=== PATIENT | male | born 1970 | race Caucasian/White ===

== ENCOUNTER 2021-09-21 02:57 | Inpatient (IN) | payer OTHER, MEDICAID ==
[~2021-09-21] VITALS: Ht 180.3 cm; Wt 126.6 kg
[2021-09-21 02:57] VITALS: BP_SYST 146
--- NOTE | 2021-09-21 02:57 | NUR ---
Placed in room 1 . Placed on site monitor, blood pressure machine and pulse oximeter. To gown for exam. Side rails up. Report given to Clark CARLOS.
--- NOTE | 2021-09-21 02:58 | NUR ---
ER Dr.Dela Ybarra at bedside examining patient.
--- NOTE | 2021-09-21 02:59 | NUR ---
Code stroke activated.
--- NOTE | 2021-09-21 03:08 | NUR ---
Pt taken to CT via acls protocol.
[2021-09-21] MEDS ORDERED: NITROGLYCERIN 0.4 MG TAB.SUBL SL ONE (03:15)
[2021-09-21] MEDS ORDERED: IOHEXOL 350 mgI/mL, 150 ML INFUS..BTL IV ONE (03:16)
[2021-09-21 03:25] LABS: BASOPHILS # (AUTO) 0.1 K/uL (0.0-0.2); BASOPHILS % (AUTO) 1.3 % (0.0-2.0); EOSINOPHILS # (AUTO) 0.3 K/uL (0.0-0.4); EOSINOPHILS % (AUTO) 3.2 % (0.0-4.0); HEMOGLOBIN 15.2 g/dL (14.0-18.0); LYMPHOCYTES # (AUTO) 4.2 K/uL (1.0-5.5); MEAN CORPUSCULAR HEMOGLOBIN 33 pg (27-31); MEAN CORPUSCULAR HGB CONC 35 % (32-36); MEAN CORPUSCULAR VOLUME 95 fL (79.0-98.0); MONOCYTES # (AUTO) 0.5 K/uL (0.0-1.0); MONOCYTES % (AUTO) 6.9 % (1.7-9.3); NEUTROPHILS # (AUTO) 2.8 K/uL (1.8-7.7); NEUTROPHILS % (AUTO) 35.6 % (40.0-70.0); PLATELET COUNT (AUTO) 257 K/uL (130-430); RED BLOOD CELL COUNT(AUTO) 4.62 MIL/uL (4.2-6.2); RED CELL DISTRIBUTION WIDTH 13.7 % (9.0-15.0); WHITE BLOOD COUNT (AUTO) 7.9 K/uL (4.8-10.8)
--- NOTE | 2021-09-21 03:29 | NUR ---
Pt back to ER bed [address]
[2021-09-21] MEDS: IPRATROPIUM/ALBUTEROL SULFATE 3 ML AMPUL.NEB (DUONEB) INH SCH (03:30)
--- NOTE | 2021-09-21 03:30 | NUR ---
PATIENT BACK FROM CT SCAN AND PLACED INTO BED 1 AND ON THE MONITOR.
--- NOTE | 2021-09-21 03:45 | NUR ---
DR. CORINNE MCDERMOTT WITH NEUROLOGY ON THE TELEMED VIDEO ASSESSING AND SPEAKING TO PATIENT.
[2021-09-21 03:47] LABS: ANION GAP 10 (5-15); CALCIUM 8.6 mg/dL (8.4-11.0); CHLORIDE 100 mmol/L (98-107); CREATININE 0.96 mg/dL (0.55-1.30); GLUCOSE 120 mg/dL (70-99); POTASSIUM 4.7 mmol/L (3.5-5.1); SODIUM SERUM 133 mmol/L (136-145); UREA NITROGEN, BLOOD 11 mg/dL (8-21)
[2021-09-21 03:59] LABS: ALANINE AMINOTRANSFERASE 38 U/L (12-78); ALBUMIN 3.6 g/dL (3.4-4.8); ALCOHOL, BLOOD 246 mg/dL (<10); ASPARTATE AMINOTRANSFERASE 36 U/L (10-37); TOTAL BILIRUBIN 0.5 mg/dL (0.0-1.0)
[2021-09-21 04:04] LABS: GFR AFRICAN AMERICAN 106 mL/min (>90)
[2021-09-21] MEDS ORDERED: MORPHINE 4 MG INJ. 4 MG/ML VIAL IVP ONE (04:15)
[2021-09-21] MEDS ORDERED: ONDANSETRON HCL 4 MG/2 ML VIAL IVP ONE (04:15)
[2021-09-21] MEDS ORDERED: MORPHINE 4 MG INJ. 4 MG/ML VIAL ONE ×2 (04:26→08:32)
[2021-09-21 04:40] LABS: BILIRUBIN,URINE NEGATIVE (NEGATIVE); BLOOD, URINE NEGATIVE (NEGATIVE); CLARITY/URINE CLEAR (CLEAR); COLOR,URINE YELLOW (YELLOW); GLUCOSE,URINE NEGATIVE (NEGATIVE); KETONES,URINE NEGATIVE (NEGATIVE); LEUKOCYTE ESTERASE ,URINE NEGATIVE (NEGATIVE); NITRITE, URINE NEGATIVE (NEGATIVE); PROTEIN URINE TRACE (NEGATIVE); UROBILINOGEN,URINE 0.2 (0.2-1.0)
[2021-09-21 04:48] LABS: BARBITURATE, URINE NEGATIVE (NEG <=200); BENZODIAZEPINE, URINE NEGATIVE (NEG <=150); CANNABINOID, URINE POSITIVE (NEG <=50); COCAINE, URINE NEGATIVE (NEG <=150); METHAMPHETAMINES SCREEN,URINE NEGATIVE (NEG <=500); OPIATE, URINE NEGATIVE (NEG <=100); PHENCYCLIDINE SCREEN,URINE NEGATIVE (NEG <=25); UR TRICYCLIC ANTIDEPRESSANTS NEGATIVE (NEG <=300); URINE AMPHETAMINE NEGATIVE (NEG <=500); URINE METHADONE NEGATIVE (NEG <=200); URINE OXYCODONE SCREEN NEGATIVE (NEG <=100); URINE PROPOXYPHENE SCREEN NEGATIVE (NEG <=300)
[2021-09-21] MEDS ORDERED: FOLIC ACID 1 MG, THIAMINE HCL 100 MG, MAGNESIUM SULFATE 1 GM, MVI 10 ML in NACL 0.9% 1,... IV SCH (05:00)
--- NOTE | 2021-09-21 05:05 | NUR ---
Admit bed requested Patient will be admitted to care of . Admitted to TELE unit. Diagnosis ACUTE CVA,ETOH Inpatient (Yes or No) YES Observation (Yes or No) NO Orientation concerns or request close to nursing station (Yes or No) NO Covid Status PENDING On vent or bipap NO Isolation requirements NO Needs a sitter NO From Home (Yes or if No enter name of facility) YES Requires Dialysis (Yes or No) NO Med Rec Completed (Yes of No) PENDING
[2021-09-21 05:20] LABS: PROTHROMBIN TIME 9.7 SECS (9.5-12.5)
--- NOTE | 2021-09-21 07:14 | NUR ---
REPORT GIVEN TO BREANNA WARE
--- NOTE | 2021-09-21 07:23 | NUR ---
Assumed care of pt and pt is in bed resting with no s/s of distress. A&Ox4. SKin intact. VSS. 18g IV intact on right AC no infiltration noted. Bed in lowest position. No chest pain and no sob. Denies n/v. No stroke symptoms present.
[2021-09-21] MEDS ORDERED: THIAMINE HCL 100 MG, MAGNESIUM SULFATE 1 GM in NS 100 ML IV SCH (08:15)
[2021-09-21] MEDS ORDERED: FOLIC ACID 1 MG, MVI 10 ML in NACL 0.9% 1,000 ML IV SCH (08:15)
[2021-09-21] MEDS ORDERED: ONDANSETRON HCL 4 MG/2 ML VIAL ONE (08:28)
[2021-09-21] MEDS ORDERED: ACETAMINOPHEN 325 MG TABLET PO PRN (08:30)
[2021-09-21] MEDS ORDERED: MAG-AL HYDROX/SIMETH 30 ML UDC PO ONE (08:30)
[2021-09-21] MEDS ORDERED: ONDANSETRON HCL 4 MG/2 ML VIAL IM PRN (08:30)
[2021-09-21] MEDS ORDERED: MORPHINE 2 MG/ML INJ. SYRINGE IVP PRN (08:30)
[2021-09-21] MEDS ORDERED: MAG-AL HYDROX/SIMETH 30 ML UDC ONE (08:34)
[2021-09-21] MEDS ORDERED: APIXABAN 2.5 MG TABLET PO SCH (09:00)
[2021-09-21] MEDS: PANTOPRAZOLE SODIUM 40 MG/VIAL (PROTONIX) IVP SCH (09:33)
[2021-09-21] MEDS: APIXABAN 2.5 MG TABLET PO SCH ×2 (09:34→21:10)
[2021-09-21 10:16] VITALS: BP_SYST 115
[2021-09-21 12:00] VITALS: BP_SYST 112
[2021-09-21 16:00] VITALS: BP_SYST 115
--- NOTE | 2021-09-21 19:15 | NUR ---
OPENING NOTE REPORT RECEIVED FROM DAYSHIFT NURSE. PATIENT RECEIVED LYING IN BED, EYES CLOSED, RESTING, NO S/S OF ACUTE DISTRESS. BREATHING EVEN AND UNLABORED. HOB RAISED, NASAL CANULA ATTACHED PROPERLY, ON 2L OF OXYGEN. CALL LIGHT WITH PATIENT. BED IS LOCKED AND AT LOWEST POSITION. WILL CONTINUE TO MONITOR.
[2021-09-21] MEDS: MORPHINE 4 MG INJ. 4 MG/ML VIAL IVP PRN (21:09)
[2021-09-22 00:06] VITALS: BP_SYST 149
[2021-09-22] MEDS ORDERED: CLOP75TA32 PO (03:09)
[2021-09-22] MEDS ORDERED: LEVE500T9 PO (03:09)
[2021-09-22] MEDS ORDERED: GABA-529 PO (03:09)
[2021-09-22] MEDS ORDERED: APIX5TAB4 PO (03:09)
[2021-09-22] MEDS ORDERED: MONT-40 PO (03:09)
[2021-09-22] MEDS ORDERED: LIP80 PO (03:09)
[2021-09-22] MEDS ORDERED: CITA10SO PO (03:09)
[2021-09-22] MEDS ORDERED: FURO-150 PO (03:09)
[2021-09-22] MEDS ORDERED: COR3.125 PO (03:09)
[2021-09-22] MEDS ORDERED: TRAM50TA2 PO (03:09)
[2021-09-22] MEDS ORDERED: VALS40TA12 PO (03:09)
[2021-09-22] MEDS ORDERED: ASCO500S10 PO (03:09)
[2021-09-22] MEDS ORDERED: VITA1CAP PO (03:09)
[2021-09-22] MEDS: MORPHINE 4 MG INJ. 4 MG/ML VIAL IVP PRN ×5 (04:29→23:05)
--- NOTE | 2021-09-22 06:30 | NUR ---
CLOSING NOTE PATIENT IN BED, RESTING, NO S/S OF ACUTE DISTRESS. BREATHING EVEN AND UNLABORED. HOB RAISED, NASAL CANULA ATTACHED PROPERLY ON 2L OF OXYGEN. IV SITE PATENT, NO SIGNS OF INFILTRATION OR INFECTION NOTED. ALL NEEDS MET THROUGHOUT SHIFT. FALL AND SAFETY PRECAUTIONS MAINTAINED THROUGHOUT SHIFT. WILL CONTINUE TO MONITOR UNTIL PATIENT CARE IS ENDORSED TO ONCOMING DAYSHIFT NURSE.
[2021-09-22 06:53] LABS: CALCIUM 8.8 mg/dL (8.4-11.0); CREATININE 0.97 mg/dL (0.55-1.30); POTASSIUM 4.5 mmol/L (3.5-5.1)
[2021-09-22 07:08] LABS: ALBUMIN 3.3 g/dL (3.4-4.8); THYROID STIMULATING HORMONE 3.95 uIu/mL (0.36-3.74); TOTAL BILIRUBIN 0.7 mg/dL (0.0-1.0)
--- NOTE | 2021-09-22 07:25 | NUR ---
MORNING ROUNDS: PATIENT LYING ON THE BED,AWAKE,ALERT AND ORIENTED X4. O2 2L/NC,GOOD SATURATION.RIGHT AC IV INTACT. CALL LIGHT WITH IN REACH. BED LOCKED AT LOWEST POSITION. NOT IN ANY DISTRESS.
[2021-09-22 08:00] VITALS: BP_SYST 131
[2021-09-22] MEDS: THIAMINE HCL 100 MG TABLET PO SCH (08:54)
[2021-09-22] MEDS: FOLIC ACID 1 MG TABLET PO SCH (08:55)
[2021-09-22] MEDS: PANTOPRAZOLE SODIUM 40 MG/VIAL (PROTONIX) IVP SCH (08:59)
[2021-09-22] MEDS: APIXABAN 2.5 MG TABLET PO SCH ×2 (09:00→20:52)
--- NOTE | 2021-09-22 11:54 | NUR ---
PHYSICAL THERAPY EVALUATION COMPLETED. PATIENT IS SAFE TO USE THE FWW FOR AMBULATION. HE IS AT HIS BASELINE LEVEL OF INDEPENDENT FUNCTIONAL MOBILITY WITH THE FWW. NO NEED FOR FURTHER PHYSICAL THERAPY.
[2021-09-22 12:00] VITALS: BP_SYST 143
[2021-09-22] MEDS ORDERED: VALSARTAN 40 MG PO SCH (13:15)
[2021-09-22] MEDS ORDERED: traMADol HCL HCL 50 MG TABLET (ULTRAM) PO PRN (13:15)
[2021-09-22] MEDS ORDERED: GABAPENTIN 100 MG CAPSULE PO ONE (15:00)
[2021-09-22] MEDS ORDERED: levETIRAcetam 500 MG TABLET PO ONE (15:00)
[2021-09-22] MEDS ORDERED: CARVEDILOL 3.125 MG TABLET (COREG) PO ONE (15:00)
[2021-09-22] MEDS ORDERED: ATORVASTATIN 20 MG TABLET PO ONE (15:00)
[2021-09-22] MEDS ORDERED: NEPHROVITE, (FOLIC ACID/VITAMIN B COMP W-C 1 TAB) PO ONE (15:00)
[2021-09-22] MEDS ORDERED: THIAMINE HCL 100 MG in NS 50 ML IV ONE (15:23)
[2021-09-22] MEDS ORDERED: CLOPIDOGREL BISULFATE 75 MG TABLET PO ONE (15:30)
[2021-09-22] MEDS ORDERED: LOSARTAN POTASSIUM 25 MG TABLET PO ONE (15:30)
[2021-09-22] MEDS ORDERED: CITALOPRAM HYDROBROMIDE 20 MG TABLET PO ONE (15:30)
[2021-09-22] MEDS ORDERED: MONTELUKAST 10 MG TABLET PO ONE (15:30)
[2021-09-22 16:00] VITALS: BP_SYST 128
--- NOTE | 2021-09-22 18:21 | NUR ---
Evening Rounds: Patient stated not hungry and requested for ice tea.Rn called dietary to order for ice tea. Call light with in reach. Bed locked at lowest position. Patient went back to sleep. Not in any respiratory distress.
--- NOTE | 2021-09-22 19:15 | NUR ---
OPENING NOTE REPORT RECEIVED FROM DAYSHIFT NURSE. PATIENT RECEIVED LYING IN BED, AWAKE, NO S/S OF ACUTE DISTRESS, DENIES PAIN. BREATHING EVEN AND UNLABORED. HOB RAISED, NASAL CANULA ATTACHED PROPERLY, ON 2L OF OXYGEN. IV SITE PATENT, NO SIGNS OF INFILTRATION OR INFECTION NOTED. CALL LIGHT WITH PATIENT. BED ALARM ON. BED IS LOCKED AND AT LOWEST POSITION. WILL CONTINUE TO MONITOR.
[2021-09-22 20:00] VITALS: BP_SYST 124
[2021-09-22] MEDS: GABAPENTIN 100 MG CAPSULE PO SCH (20:48)
[2021-09-22] MEDS: levETIRAcetam 500 MG TABLET PO SCH (20:53)
[2021-09-22] MEDS ORDERED: NON-FORMULARY MEDICATION (Apixaban (Eliquis) 5 MG) PO SCH (21:00)
[2021-09-23 00:47] VITALS: BP_SYST 140
[2021-09-23] MEDS: MORPHINE 4 MG INJ. 4 MG/ML VIAL IVP PRN ×3 (03:34→14:34)
[2021-09-23 05:36] VITALS: BP_SYST 140
--- NOTE | 2021-09-23 06:22 | NUR ---
CLOSING NOTE PATIENT IN BED, RESTING. NO S/S OF ACUTE DISTRESS NOTED. BREATHING EVEN AND UNLABORED. HOB RAISED, NASAL CANULA ATTACHED PROPERLY ON 2L OF OXYGEN. IV SITE IS PATENT, NO SIGNS OF INFILTRATION OR INFECTION NOTED. ALL NEEDS MET THROUGHOUT SHIFT. FALL AND SAFETY PRECAUTIONS MAINTAINED THROUGHOUT SHIFT. WILL CONTINUE TO MONITOR UNTIL PATIENT CARE IS ENDORSED TO ONCOMING DAYSHIFT NURSE.
[2021-09-23 06:35] LABS: BASOPHILS % (AUTO) 0.8 % (0.0-2.0); EOSINOPHILS # (AUTO) 0.2 K/uL (0.0-0.4); EOSINOPHILS % (AUTO) 3.5 % (0.0-4.0); HEMATOCRIT 42.4 % (36-54); LYMPHOCYTES # (AUTO) 2.3 K/uL (1.0-5.5); LYMPHOCYTES % (AUTO) 40.3 % (20.5-51.5); MEAN CORPUSCULAR HEMOGLOBIN 33 pg (27-31); MEAN CORPUSCULAR HGB CONC 35 % (32-36); MEAN CORPUSCULAR VOLUME 94 fL (79.0-98.0); MONOCYTES # (AUTO) 0.5 K/uL (0.0-1.0); MONOCYTES % (AUTO) 8.1 % (1.7-9.3); NEUTROPHILS # (AUTO) 2.7 K/uL (1.8-7.7); NEUTROPHILS % (AUTO) 47.3 % (40.0-70.0); PLATELET COUNT (AUTO) 217 K/uL (130-430); RED CELL DISTRIBUTION WIDTH 13.6 % (9.0-15.0); WHITE BLOOD COUNT (AUTO) 5.8 K/uL (4.8-10.8)
[2021-09-23] MEDS: IPRATROPIUM/ALBUTEROL SULFATE 3 ML AMPUL.NEB (DUONEB) INH SCH ×3 (07:00→15:00)
[2021-09-23 07:01] LABS: CALCIUM 8.8 mg/dL (8.4-11.0); CREATININE 0.95 mg/dL (0.55-1.30); POTASSIUM 4.3 mmol/L (3.5-5.1)
[2021-09-23 07:45] VITALS: BP_SYST 135
--- NOTE | 2021-09-23 07:45 | NUR ---
Opening Note Received report from Cristobal CARLOS. Patient is laying in bed awake. A/O x4. No apparent distress noted. Vitals as charted. Call light within reach. Safety and fall precautions in place. All needs met.
--- NOTE | 2021-09-23 08:05 | NUR ---
D/C Patient Patient given medication reconciliation form and D/C instructions. Exit Care provided. Patient verbalized understanding. MD discussed with patient the results and treatment provided. Ambulatory with steady gait for discharge to home. Patient in stable condition, ID band removed. IV catheter removed, intact and dressing applied, no active bleeding. Patient educated on pain management. All belongings sent with patient. Addendum: 09/23/21 at 1831 by Slick Nelson RN TIME [id number] NOT [id number]
[2021-09-23] MEDS ORDERED: CLOPIDOGREL BISULFATE 75 MG TABLET PO SCH (09:00)
[2021-09-23] MEDS ORDERED: CITALOPRAM HYDROBROMIDE 20 MG TABLET PO SCH (09:00)
[2021-09-23] MEDS: levETIRAcetam 500 MG TABLET PO SCH ×2 (09:00→09:19)
[2021-09-23] MEDS ORDERED: THIAMINE HCL 100 MG TABLET PO SCH (09:00)
[2021-09-23] MEDS ORDERED: LOSARTAN POTASSIUM 25 MG TABLET PO SCH (09:00)
[2021-09-23] MEDS ORDERED: CARVEDILOL 3.125 MG TABLET (COREG) PO SCH (09:00)
[2021-09-23] MEDS ORDERED: ASCORBIC ACID 500 MG TABLET PO SCH (09:00)
[2021-09-23] MEDS ORDERED: NEPHROVITE, (FOLIC ACID/VITAMIN B COMP W-C 1 TAB) PO SCH (09:00)
[2021-09-23] MEDS ORDERED: FUROSEMIDE 20 MG TABLET PO SCH (09:00)
[2021-09-23] MEDS ORDERED: MONTELUKAST 10 MG TABLET PO SCH (09:00)
[2021-09-23] MEDS ORDERED: ATORVASTATIN 20 MG TABLET PO SCH (09:00)
[2021-09-23] MEDS: PANTOPRAZOLE SODIUM 40 MG/VIAL (PROTONIX) IVP SCH (09:17)
[2021-09-23] MEDS: FOLIC ACID 1 MG TABLET PO SCH (09:19)
[2021-09-23] MEDS: GABAPENTIN 100 MG CAPSULE PO SCH (09:20)
[2021-09-23] MEDS: THIAMINE HCL 100 MG TABLET PO SCH (09:21)
[2021-09-23] MEDS: APIXABAN 2.5 MG TABLET PO SCH (09:24)
[2021-09-23 12:00] VITALS: BP_SYST 138
--- NOTE | 2021-09-23 14:22 | NUR ---
PESTICIDE CHEMIST NANCY Carrillo met with patient at bedside to assess needs for social work support related to patient's alcohol intoxication. CDL BULK DRIVERJamel Carrillo met with patient at bedside. Patient was sitting up in bed, alert and oriented x4. CDL BULK DRIVER completed introductions, reason for referral, and provided business card. Patient was open to contact. Substance Use- Patient discloses use of edibles (unknown if CBD or THC type). He also shared during the daytime preceding admission he had consumed 5 "Tall cans of 805". CDL BULK DRIVER inquired into his use of alcohol, but patient expressed feeling that he does not have a problem and declined needing resources to address this. Social- Patient is to Abena Franklin. They have 3 daughters and he also has a stepson. He shared his daughter had recently visited him, and would continue to serve as his support system in his home. CDL BULK DRIVER explored physical health, mental health, and substance use's impact on one another. Patient stated he feels ready to go home. CDL BULK DRIVER again offered patient resources to address alcohol use but he declined. CDL BULK DRIVER will continue to be available as needed
--- NOTE | 2021-09-23 14:33 | NUR ---
MIXING OPERATOR/UPDATE PATIENT INFO BLOOD COLLECTOR Lorena emailed admitting to update patient's "Person to Notify and Next of Kin" to reflect , Abena Franklin
--- NOTE | 2021-09-23 15:05 | NUR ---
Dr. Edison Hogan at bedside. Dr. Edison esteban to d/c patient home.
[2021-09-23] MEDS ORDERED: FOLI-43 PO (15:18)
[2021-09-23] MEDS ORDERED: Thiamine Hcl PO (15:18)
--- NOTE | 2021-09-23 15:44 | NUR ---
CM: confirmed with cyril/Yuki, said she is [facility]SS for the pt and will need home health nurse for f/u care and PT.
--- NOTE | 2021-09-23 15:46 | NUR ---
Dispo code 06.
[2021-09-23 16:00] VITALS: BP_SYST 136
--- NOTE | 2021-09-23 16:51 | NUR ---
Discharge Planning: DCp faxed pt referral to [facility] [phone]. CM to follow up
[2021-09-23 16:57] VITALS: BP_SYST 130
== END 2021-09-23 18:10 | disposition home or self-care (01) | DRG 69 ==
LOC: SED 02:57 → STU 04:58
PROVIDERS: ADMIT Internal Medicine; ATTEND Internal Medicine
DX: G45.9 Transient cerebral ischemic attack, unspecified (principal); I24.8 Other forms of acute ischemic heart disease; I42.2 Other hypertrophic cardiomyopathy; I69.354 Hemiplegia and hemiparesis following cerebral infarction affecting left non-dominant side; F10.229 Alcohol dependence with intoxication, unspecified; I50.9 Heart failure, unspecified; E66.9 Obesity, unspecified; R47.1 Dysarthria and anarthria; Z20.822 Contact with and (suspected) exposure to COVID-19; J44.9 Chronic obstructive pulmonary disease, unspecified; Z95.0 Presence of cardiac pacemaker; Z56.0 Unemployment, unspecified; I25.2 Old myocardial infarction; Z79.01 Long term (current) use of anticoagulants
CPT/HCPCS: 36415; 70450-TC; 70496; 70498; 71045; 76376; 80048; 80053; 80061; 80307; 81003; 83735; 83880; 84443; 84484; 85025; 85610-TC; 85730-TC; 86886; 86900; 86901; 93005; 93306; 94640; 94760; 96374; 96375; 99291; 99292; C9113; G0378; G0482; J2270; J2405; J3411; J3475; J3490; J7030; Q9967